=== PATIENT | female | born 1965 | race African-American/Black ===

== ENCOUNTER 2017-06-22 14:38 | Emergency (ER) | payer OTHER ==
[~2017-06-22 14:38] MED LIST: ALUM5LIQ PO; CALA180T PO; LISI-360 PO; MOBI15TA PO; NEUR300C PO; XANA1TAB6 PO; ZANT150T2 PO
[2017-06-22 14:53] VITALS: BP 181/98; PULSE 70; RESP 22; TEMP 98.5; O2SAT 99
[2017-06-22 15:43] LABS: BACTERIA, URINE MOD /hpf; BILIRUBIN, URINE NEG (NEG); BLOOD, URINE NEG (NEG); GLUCOSE,URINE NEG (NEG); KETONE, URINE 10 mg/dL (NEG); MUCUS URINE FEW /lpf (OCC); NITRITE,URINE NEG (NEG); SQUAMOUS EPITHELIAL CELL URINE 10 /hpf (0-5); URINE COLOR YELLOW (YELLW/STRAW); URINE LEUKOCYTE ESTERASE SMALL (NEG)
[2017-06-22 16:07] VITALS: BP 170/81; PULSE 68; RESP 18; TEMP 98.5; O2SAT 100
[2017-06-22] MEDS ORDERED: cefTRIAXone 250 MG VIAL IM ONE (16:30)
--- NOTE | 2017-06-22 16:35 | PD ---
HPI . Flank pain Chief Complaint: Medical Clearance Time Seen by Provider: 16:23 Travel History International Travel<30 days: No Contact w/Intl Traveler<30days: No Traveled to known affect area: No History of Present Illness HPI Patient presents complaining with right flank pain. Onset was about 4 or 5 days ago. She was seen at an outside hospital 4 days ago and diagnosed with urinary tract infection. She states that she was given a prescription for Keflex and Lortab. She states that she has been taking the antibiotic but continues to have the flank pain. She states that the Lortab did help but she is out of Lortab. She states that she did have a CT scan done at that time. She comes in complaining with pain which she rates 10/10. She states that she cannot be still. She denies any other associated symptoms. PFSH Past Medical History Arthritis: Yes (RHEUMATOID) Asthma: Yes Atrial Fibrillation: Yes Blood Disorders: No Anxiety: Yes Depression: Yes Heart Rhythm Problems: Yes (PALPITATIONS) Cancer: No Cardiovascular Problems: Yes (HTN) Chest Pain: No Congestive Heart Failure: No COPD: Yes Diabetes: Yes (METFORMIN) Diminished Hearing: No Endocrine: No Fibromyalgia: Yes Gastrointestinal Disorders: Yes GERD: Yes Genitourinary: No Hypertension: Yes Immune Disorder: Yes (rheumatoid arthritis and fibromyalgia) Implanted Vascular Access Dvce: No Musculoskeletal: Yes (DEGENERATIVE DISC DISEASE) Neurologic: Yes (FIBROMYALGIA) Psychiatric: Yes Reproductive: Yes ("CERVICAL INFECTION") Respiratory: Yes (ASTHMA BRONCHITIS) Immunizations Current: No Radiation Therapy: No Thyroid Disease: No : 3 Para: 3 Miscarriage: 0 : 0 Tubal Ligation: Yes (1988) Past Surgical History Section: Yes (x3) Cholecystectomy: Yes Social History Alcohol Use: No Tobacco Use: Yes (1/2 PPD) Substance Use: Yes (MARIJUANA AND COCAINE) Allergies-Medications (Allergen,Severity, Reaction): Coded Allergies: diclofenac (Unverified Allergy, Severe, N/V, 10/13/16) etodolac (Unverified Allergy, Severe, N/V, 10/13/16) flurbiprofen (Unverified Allergy, Severe, N/V, 10/13/16) ibuprofen (Unverified Allergy, Severe, N/V, 10/13/16) indomethacin (Unverified Allergy, Severe, N/V, 10/13/16) ketoprofen (Unverified Allergy, Severe, N/V, 10/13/16) ketorolac (Unverified Allergy, Severe, N/V, 10/13/16) naproxen (Unverified Allergy, Severe, N/V, 10/13/16) oxaprozin (Unverified Allergy, Severe, N/V, 10/13/16) tramadol (Unverified Allergy, Severe, N/V, 10/13/16) Reported Meds & Prescriptions Reported Meds & Active Scripts Active Maalox (Al Hydrox/Mg Hydrox/Simethicone) Susp 30 Ml PO Q6H PRN 3 Days Reported Mobic (Meloxicam) 15 Mg Tab 15 Mg PO BID Zantac (Ranitidine HCl) 150 Mg Tab 150 Mg PO DAILY Xanax 1 mg (Alprazolam) Alprazolam 1 mg Tab 1 Tab PO BID Lisinopril 10 mg (Lisinopril) 10 Mg Tab 1 Tab PO HS Neurontin (Gabapentin) 300 Mg Cap 500 Mg PO TID Verapamil Hcl Er (Verapamil HCl) 180 Mg Tab 180 Mg PO DAILY Review of Systems Except as stated in HPI: all other systems reviewed are Neg General / Constitutional: No: Fever, Chills Genitourinary: Positive: Flank Pain, No: Urgency, Frequency, Dysuria Musculoskeletal: Positive: Arthralgias Physical Exam Narrative GENERAL: The patient is sitting on the stretcher rocking back and forth continuously. SKIN: warm/dry. Normal color and turgor. HEAD: Normocephalic. Atraumatic. EYES: Pupils equal and round. No scleral icterus. No injection or drainage. ENT: No nasal bleeding or discharge. Mucous membranes pink and moist. NECK: Trachea midline. Full range of motion without pain. CARDIOVASCULAR: Regular rate and rhythm. RESPIRATORY: No accessory muscle use. GASTROINTESTINAL: Abdomen soft. Nontender. Bowel sounds present. Nondistended. : Right CVA tenderness. MUSCULOSKELETAL: No obvious deformities. NEUROLOGICAL: Awake and alert. No obvious cranial nerve deficits. Motor grossly within normal limits. Normal speech. PSYCHIATRIC: Appropriate mood and affect; insight and judgment normal. Data Data Last Documented VS Vital Signs Date Time Temp Pulse Resp B/P (MAP) Pulse Ox O2 Delivery O2 Flow Rate FiO2 06/22/17 16:07 98.5 68 18 170/81 (110) 100 Room Air Orders Orders Urinalysis - C+S If Indicated (06/22/17 15:00) Urine Culture (06/22/17 15:06) Ceftriaxone Inj (Rocephin Inj) (06/22/17 16:30) Ct Abd/Pel W/O Iv Contrast (06/22/17 16:35) Iv Access Insert/Monitor (06/22/17 16:35) Ondansetron Inj (Zofran Inj) (06/22/17 16:45) Sodium Chloride 0.9% Flush (Ns Flush) (06/22/17 16:45) Morphine Inj (Morphine Inj) (06/22/17 16:45) Ceftriaxone Inj (Rocephin Inj) (06/22/17 16:45) Labs Laboratory Tests Test 06/22/17 15:06 Urine Color YELLOW Urine Turbidity HAZY Urine pH 6.0 Urine Specific [place] 1.027 Urine Protein TRACE mg/dL Urine Glucose (UA) NEG mg/dL Urine Ketones 10 mg/dL Urine Occult Blood NEG Urine Nitrite NEG Urine Bilirubin NEG Urine Urobilinogen 2.0 MG/DL Urine Leukocyte Esterase SMALL Urine RBC 1 /hpf Urine WBC 7 /hpf Urine Squamous Epithelial Cells 10 /hpf Urine Bacteria MOD /hpf Urine Mucus FEW /lpf Microscopic Urinalysis Comment CULTURE INDICATED MDM Medical Decision Making Medical Screen Exam Complete: Yes Emergency Medical Condition: Yes Differential Diagnosis Differential diagnosis of flank pain includes but is not limited to kidney stone , pyelonephritis, musculoskeletal pain, PE Narrative Course This patient presents complaining with right flank pain. Onset was about 4 days ago. She was seen at an outside hospital and diagnosed with a UTI. She has been on antibiotics for 4 days. Her pain continues. She is out of her Lortab. UA shows small leukocyte esterase, 7 white blood cells and moderate bacteria. I will give her a dose of Rocephin. I have ordered a CT to look for a kidney stone. Diagnosis Primary Impression: Right flank pain Additional Impression: Urinary tract infection Qualified Codes: N39.0 - Urinary tract infection, site not specified Patient Instructions: Narcotic given in the ED Disposition: 01 DISCHARGE HOME Condition: Stable Lashonda Davila MD Jun 22, 2017 16:35
[2017-06-22] MEDS ORDERED: cefTRIAXone INJ 1,000 MG in SODIUM CHLORIDE 0.9% INJ 100 ML IV ONE (16:45)
[2017-06-22] MEDS ORDERED: ONDANSETRON HCL 4 MG/2 ML VIAL IVP ONE (16:45)
[2017-06-22] MEDS ORDERED: MORPHINE SULFATE 4 MG/ML INJ IV PUSH ONE (16:45)
[2017-06-22] MEDS ORDERED: SODIUM CHLORIDE 0.9% FLUSH 10 ML FLUSH IVF PRN (16:45)
[2017-06-22 17:50] VITALS: BP 141/87; PULSE 78; RESP 18; O2SAT 98
--- NOTE | 2017-06-22 18:42 | RADRPT ---
EXAM DATE/TIME: 06/22/2017 18:11 [place] COMPARISON: No previous studies available for comparison. INDICATIONS : Upper abdominal pain ORAL CONTRAST: No oral contrast ingested. RADIATION DOSE: 13.88 CTDIvol (mGy) ; Patient body habitus MEDICAL HISTORY : Hypertension. Cardiovascular disease Chronic obstructive pulmonary disease.Asthma, diabetes SURGICAL HISTORY : Tubal ligation. section. ENCOUNTER: Initial ACUITY: 1 day PAIN SCALE: 10/10 LOCATION: upper quadrant Abdomen TECHNIQUE: Volumetric scanning of the abdomen and pelvis was performed. Using automated exposure control and ad justment of the mA and/or kV according to patient size, radiation dose was kept as low as reasonably achievable to obtain optimal diagnostic quality images. DICOM format image data is available electro nically for review and comparison. FINDINGS: LOWER LUNGS: The visualized lower lungs are clear. LIVER: Homogeneous density without lesion. There is no dilation of the biliary tree. Previous cholecystecto my. SPLEEN: Normal size without lesion. PANCREAS: Within normal limits. KIDNEYS: Normal in size and shape. There is no mass, stone, or hydronephrosis. ADRENAL GLANDS: Within normal limits. VASCULAR: There is no aortic aneurysm. BOWEL/MESENTERY: The stomach, small bowel, and colon demonstrate no acute abnormality. There is no free intraperitone al air or fluid. ABDOMINAL WALL: 2.6 cm wide intra-abdominal wall defect at the level of the umbilicus containing fat only and not sig nificantly changed. RETROPERITONEUM: There is no lymphadenopathy. BLADDER: No wall thickening or mass. REPRODUCTIVE: Within normal limits. INGUINAL: There is no lymphadenopathy or hernia. MUSCULOSKELETAL: No acute bony abnormality demonstrated. CONCLUSION: No acute abnormality demonstrated. Mark Haile MD on June 22, 2017 at 18:37 Board Certified Radiologist. This report was verified electronically.
--- NOTE | 2017-06-22 19:11 | PD ---
Physical Exam Time Seen by Provider: 19:09 Narrative Received report from Dr. Davila at change of shift. CT pending and if CT is negative patient to be discharged home. Data Data Last Documented VS Vital Signs Date Time Temp Pulse Resp B/P (MAP) Pulse Ox O2 Delivery O2 Flow Rate FiO2 06/22/17 17:50 78 18 141/87 (105) 98 Room Air 06/22/17 16:07 98.5 Orders Orders Urinalysis - C+S If Indicated (06/22/17 15:00) Urine Culture (06/22/17 15:06) Ceftriaxone Inj (Rocephin Inj) (06/22/17 16:30) Ct Abd/Pel W/O Iv Contrast (06/22/17 16:35) Iv Access Insert/Monitor (06/22/17 16:35) Ondansetron Inj (Zofran Inj) (06/22/17 16:45) Sodium Chloride 0.9% Flush (Ns Flush) (06/22/17 16:45) Morphine Inj (Morphine Inj) (06/22/17 16:45) Ceftriaxone Inj (Rocephin Inj) (06/22/17 16:45) Ed Discharge Order (06/22/17 19:08) Labs Laboratory Tests Test 06/22/17 15:06 Urine Color YELLOW Urine Turbidity HAZY Urine pH 6.0 Urine Specific [place] 1.027 Urine Protein TRACE mg/dL Urine Glucose (UA) NEG mg/dL Urine Ketones 10 mg/dL Urine Occult Blood NEG Urine Nitrite NEG Urine Bilirubin NEG Urine Urobilinogen 2.0 MG/DL Urine Leukocyte Esterase SMALL Urine RBC 1 /hpf Urine WBC 7 /hpf Urine Squamous Epithelial Cells 10 /hpf Urine Bacteria MOD /hpf Urine Mucus FEW /lpf Microscopic Urinalysis Comment CULTURE INDICATED MDM Supervised Visit with RAUL: Yes Narrative Course Received report from Dr. Davila at change of shift. CT pending and if CT is negative patient to be discharged home. Abdomen/Pelvis CT 06/22/17 2605 Signed Impressions: Service Date/Time: Thursday, June 22, 2017 18:11 - CONCLUSION: No acute abnormality demonstrated. Mark Haile MD Discussed CT findings with the patient. Instructed patient to continue antibiotics for home. Instructed patient to follow up with primary care provider. Patient verbalizes understanding and agreement with treatment plan. Patient is medically cleared and stable for discharge. Discussed reasons to return to the emergency department. Patient agrees with treatment plan. The patients vital signs are stable and the patient is stable for outpatient follow- up and treatment. Patient discharged home, stable and in no acute distress. Diagnosis Primary Impression: Right flank pain Additional Impression: Urinary tract infection Qualified Codes: N39.0 - Urinary tract infection, site not specified Referrals: [facility] Primary Care Physician Urologist Patient Instructions: General Instructions, Narcotic given in the ED, Urinary Tract Infection in Women (ED) Additional Instruction: Take antibiotics as prescribed and complete full course Drink plenty of fluids Maintain good personal hygiene Follow-up with primary care provider Return to the emergency department immediately with worsening of symptoms Med/Other Pt SpecificInfo: No Change to Meds, No Meds Exist/No RX given Disposition: 01 DISCHARGE HOME Condition: Stable Radha Gaitan Jun 22, 2017 19:11
[2017-06-22 19:27] VITALS: BP 169/83; PULSE 62; RESP 18; O2SAT 99
== END 2017-06-22 19:27 | disposition home or self-care (01) ==
LOC: NEPD 14:38
DX: N39.0 Urinary tract infection, site not specified (principal); E11.9 Type 2 diabetes mellitus without complications; I10 Essential (primary) hypertension; F17.200 Nicotine dependence, unspecified, uncomplicated; F12.90 Cannabis use, unspecified, uncomplicated; F14.90 Cocaine use, unspecified, uncomplicated; Z79.84 Long term (current) use of oral hypoglycemic drugs
CPT/HCPCS: 74176; 81001; 87086; 96365; 96366; 96375; 99284; J0696; J2270; J2405

== ENCOUNTER 2017-07-16 23:54 | Emergency (ER) | payer OTHER ==
[~2017-07-16] VITALS: Ht 154.9 cm; Wt 150.0 kg
[2017-07-16 23:58] VITALS: BP 176/96; PULSE 74; RESP 18; O2SAT 96
[2017-07-17] MEDS ORDERED: SOMA350T PO (00:07)
[2017-07-17] MEDS ORDERED: LISI10TA3 PO (00:07)
[2017-07-17] MEDS ORDERED: PERC5TAB12 PO (00:07)
[2017-07-17] MEDS ORDERED: NEUR800T PO (00:07)
[2017-07-17] MEDS ORDERED: METF500T PO (00:07)
[2017-07-17] MEDS ORDERED: PROP10TA6 PO (00:07)
[2017-07-17 00:51] VITALS: TEMP 98.1
--- NOTE | 2017-07-17 00:57 | PD ---
HPI Chief Complaint: Abdominal Pain Time Seen by Provider: 00:04 Travel History International Travel<30 days: No Contact w/Intl Traveler<30days: No Traveled to known affect area: No History of Present Illness HPI abdominal pain vomit multiple times reports severe leg pain bilaterally at the inguinal area as well as a suprapubic pain she is moaning winding through her entire HPI she is vague about when the pain started . Poor historian of nature of pain or time frame ,,, she says palpating her abdomen makes it worse.. legs movement make it worse she denies diarrhea she denies constipation. PFSH Past Medical History Arthritis: Yes (RHEUMATOID) Asthma: Yes Atrial Fibrillation: Yes Blood Disorders: No Anxiety: Yes Depression: Yes Heart Rhythm Problems: Yes (PALPITATIONS) Cancer: No Cardiovascular Problems: Yes (HTN) Chest Pain: No Congestive Heart Failure: No COPD: Yes Diabetes: Yes Patient Takes Glucophage: Yes (07/16/17 0930) Diminished Hearing: No Endocrine: No Fibromyalgia: Yes Gastrointestinal Disorders: Yes GERD: Yes Genitourinary: No Hypertension: Yes Immune Disorder: Yes (rheumatoid arthritis and fibromyalgia) Implanted Vascular Access Dvce: No Musculoskeletal: Yes (DEGENERATIVE DISC DISEASE) Neurologic: Yes (FIBROMYALGIA) Psychiatric: Yes Reproductive: Yes ("CERVICAL INFECTION") Respiratory: Yes (ENDOMITROSIS) Immunizations Current: No Radiation Therapy: No Thyroid Disease: No Tetanus Vaccination: > 5 Years ?: Not : 3 Para: 3 Miscarriage: 0 : 0 Tubal Ligation: Yes (1988) Past Surgical History Section: Yes (x3) Cholecystectomy: Yes Social History Alcohol Use: No Tobacco Use: Yes (3 CIGS PER DAY) Substance Use: No (DENIES) Allergies-Medications (Allergen,Severity, Reaction): Coded Allergies: diclofenac (Unverified Allergy, Severe, N/V, 10/13/16) etodolac (Unverified Allergy, Severe, N/V, 10/13/16) flurbiprofen (Unverified Allergy, Severe, N/V, 10/13/16) ibuprofen (Unverified Allergy, Severe, N/V, 10/13/16) indomethacin (Unverified Allergy, Severe, N/V, 10/13/16) ketoprofen (Unverified Allergy, Severe, N/V, 10/13/16) ketorolac (Unverified Allergy, Severe, N/V, 10/13/16) morphine (Verified Allergy, Severe, 06/22/17) PT STATES "CAUSES ABD PAIN AND KNEE PAIN". naproxen (Unverified Allergy, Severe, N/V, 10/13/16) oxaprozin (Unverified Allergy, Severe, N/V, 10/13/16) tramadol (Unverified Allergy, Severe, N/V, 10/13/16) Reported Meds & Prescriptions Reported Meds & Active Scripts Active Reported Lisinopril 10 Mg Tab 10 Mg PO DAILY Neurontin (Gabapentin) 800 Mg Tab 800 Mg PO TID Propranolol (Propranolol HCl) 10 Mg Tab 10 Mg PO Q12HR Soma (Carisoprodol) 350 Mg Tab 350 Mg PO BID PRN Percocet (Oxycodone-Acetaminophen) 5-325 mg Tab 1-2 Tab PO Q4H PRN Metformin (Metformin HCl) 500 Mg Tab 500 Mg PO DAILY With a meal Review of Systems Except as stated in HPI: all other systems reviewed are Neg Gastrointestinal: Positive: Abdominal Pain Physical Exam Narrative GENERAL: Patient is very overdramatic while she is describing her pain to me rocking whining leaning forward SKIN: Warm and dry. HEAD: Atraumatic. Normocephalic. EYES: Pupils equal and round. No scleral icterus. No injection or drainage. ENT: No nasal bleeding or discharge. Mucous membranes pink and moist. NECK: Trachea midline. No JVD. CARDIOVASCULAR: Regular rate and rhythm. RESPIRATORY: No accessory muscle use. Clear to auscultation. Breath sounds equal bilaterally. GASTROINTESTINAL: Abdomen pain diffuse MUSCULOSKELETAL: Extremities without clubbing, cyanosis, or edema. No obvious deformities. NEUROLOGICAL: Awake and alert. No obvious cranial nerve deficits. Motor grossly within normal limits. Five out of 5 muscle strength in the arms and legs. Normal speech. PSYCHIATRIC: Appropriate mood and affect; insight and judgment normal. Data Data Last Documented VS Orders Orders Urinalysis - C+S If Indicated (07/17/17 00:57) Al-Mag Hy-Si 40-40-4 Mg/Ml Liq (Mag-Al P (07/17/17 01:00) Lidocaine 2% Viscous (Xylocaine 2% Visco (07/17/17 01:00) Gabapentin (Neurontin) (07/17/17 01:45) Tramadol (Ultram) (07/17/17 01:45) Morphine Inj (Morphine Inj) (07/17/17 01:45) Complete Blood Count With Diff (07/17/17 02:43) Comprehensive Metabolic Panel (07/17/17 02:43) Creatine Kinase (Cpk) (07/17/17 02:43) Lipase (07/17/17 02:43) Hydromorphone Pf Inj (Dilaudid Pf Inj) (07/17/17 02:45) Hydromorphone Pf Inj (Dilaudid Pf Inj) (07/17/17 03:00) Ed Discharge Order (07/17/17 05:07) Labs Laboratory Tests Test 07/17/17 00:47 07/17/17 02:40 07/17/17 03:30 Urine Color YELLOW Urine Turbidity CLEAR Urine pH 5.0 Urine Specific [place] 1.008 Urine Protein NEG mg/dL Urine Glucose (UA) NEG mg/dL Urine Ketones NEG mg/dL Urine Occult Blood NEG Urine Nitrite NEG Urine Bilirubin NEG Urine Urobilinogen LESS THAN 2.0 MG/DL Urine Leukocyte Esterase SMALL Urine RBC 1 /hpf Urine WBC 2 /hpf Urine Squamous Epithelial Cells 4 /hpf Urine Bacteria RARE /hpf Urine Hyaline Casts 12 /lpf Microscopic Urinalysis Comment CULT NOT INDICATED Blood Urea Nitrogen 13 MG/DL Creatinine 1.05 MG/DL Random Glucose 76 MG/DL Total Protein 7.3 GM/DL Albumin 3.4 GM/DL Calcium Level 8.5 MG/DL Alkaline Phosphatase 80 U/L Aspartate Amino Transf (AST/SGOT) 18 U/L Alanine Aminotransferase (ALT/SGPT) 16 U/L Total Bilirubin 0.4 MG/DL Sodium Level 140 MEQ/L Potassium Level 4.5 MEQ/L Chloride Level 104 MEQ/L Carbon Dioxide Level 27.3 MEQ/L Anion Gap 9 MEQ/L Estimat Glomerular Filtration Rate 67 ML/MIN Total Creatine Kinase 89 U/L Lipase 158 U/L White Blood Count 8.8 TH/MM3 Red Blood Count 4.65 MIL/MM3 Hemoglobin 12.6 GM/DL Hematocrit 37.8 % Mean Corpuscular Volume 81.3 FL Mean Corpuscular Hemoglobin 27.1 PG Mean Corpuscular Hemoglobin Concent 33.4 % Red Cell Distribution Width 16.3 % Platelet Count 250 TH/MM3 Mean Platelet Volume 8.5 FL Neutrophils (%) (Auto) 62.3 % Lymphocytes (%) (Auto) 26.6 % Monocytes (%) (Auto) 7.7 % Eosinophils (%) (Auto) 2.6 % Basophils (%) (Auto) 0.8 % Neutrophils # (Auto) 5.5 TH/MM3 Lymphocytes # (Auto) 2.3 TH/MM3 Monocytes # (Auto) 0.7 TH/MM3 Eosinophils # (Auto) 0.2 TH/MM3 Basophils # (Auto) 0.1 TH/MM3 CBC Comment AUTO DIFF Differential Comment AUTO DIFF CONFIRMED MDM Medical Decision Making Medical Screen Exam Complete: Yes Emergency Medical Condition: Yes Medical Record Reviewed: Yes Differential Diagnosis UTI pelvic pain back pain renal colic other Diagnosis Primary Impression: Abdominal pain Qualified Codes: R10.9 - Unspecified abdominal pain Patient Instructions: General Instructions Disposition: 01 DISCHARGE HOME Condition: Good Evelio De Leon MD July 17, 2017 00:57
[2017-07-17] MEDS ORDERED: ALUMINUM/MAGNESIUM/SIMETH 30 ML CUP PO ONE (01:00)
[2017-07-17] MEDS ORDERED: LIDOCAINE VISCOUS 2% SOLN 15 ML UDC PO ONE (01:00)
[2017-07-17 01:25] LABS: BACTERIA, URINE RARE /hpf; BILIRUBIN, URINE NEG (NEG); BLOOD, URINE NEG (NEG); GLUCOSE,URINE NEG (NEG); HYALINE CAST, URINE 12 /lpf (RARE); KETONE, URINE NEG (NEG); NITRITE,URINE NEG (NEG); SQUAMOUS EPITHELIAL CELL URINE 4 /hpf (0-5); URINE COLOR YELLOW (YELLW/STRAW); URINE LEUKOCYTE ESTERASE SMALL (NEG)
[2017-07-17] MEDS ORDERED: traMADol HCL 50 MG TAB PO ONE (01:45)
[2017-07-17] MEDS: GABAPENTIN 300 MG CAP PO ONE ×2 (01:45→06:02)
[2017-07-17] MEDS ORDERED: MORPHINE SULFATE 4 MG/ML INJ IV PUSH ONE (01:45)
[2017-07-17] MEDS ORDERED: HYDROmorphone HCL PF 1 MG/ML VIAL IV PUSH ONE (02:45)
[2017-07-17] MEDS ORDERED: HYDROmorphone HCL PF 2 MG/ML VIAL IV PUSH ONE (03:00)
[2017-07-17 03:09] LABS: ALKALINE PHOSPHATASE 80 U/L (45-117); TOTAL BILIRUBIN ADULT 0.4 MG/DL (0.2-1.0); TOTAL PROTEIN 7.3 GM/DL (6.4-8.2)
[2017-07-17 03:14] LABS: ALBUMIN 3.4 GM/DL (3.4-5.0); ALT (GPT) 16 U/L (10-53); AST (GOT) 18 U/L (15-37); BICARBONATE 27.3 MEQ/L (21.0-32.0); BLOOD UREA NITROGEN 13 MG/DL (7-18); CALCIUM 8.5 MG/DL (8.5-10.1); CHLORIDE 104 MEQ/L (98-107); CREATININE 1.05 MG/DL (0.50-1.00); GLOMERULAR FILTRATION RATE 67 ML/MIN (>89); GLUCOSE,RANDOM 76 MG/DL (74-106); SODIUM (NA) 140 MEQ/L (136-145)
[2017-07-17 03:55] LABS: AUTOMATED NEUTROPHIL # 5.5 TH/MM3 (1.8-7.7); BASOPHIL # 0.1 TH/MM3 (0-0.2); BASOPHIL % 0.8 % (0.0-2.0); EOSINOPHIL # 0.2 TH/MM3 (0-0.4); EOSINOPHIL % 2.6 % (0.0-4.0); HEMATOCRIT 37.8 % (35.0-46.0); HEMOGLOBIN 12.6 GM/DL (11.6-15.3); LYMPH % 26.6 % (9.0-44.0); LYMPHOCYTE # 2.3 TH/MM3 (1.0-4.8); MEAN CELL VOLUME 81.3 FL (80.0-100.0); MEAN CORPUSCULAR HEMOGLOBIN 27.1 PG (27.0-34.0); MEAN CORPUSCULAR HGB CONC 33.4 % (32.0-36.0); MEAN PLATELET VOLUME 8.5 FL (7.0-11.0); MONO % 7.7 % (0.0-8.0); MONOCYTE # 0.7 TH/MM3 (0-0.9); NEUT % 62.3 % (16.0-70.0); PLATELET COUNT 250 TH/MM3 (150-450); RED BLOOD COUNT 4.65 MIL/MM3 (4.00-5.30); RED CELL DISTRIBUTION WIDTH 16.3 % (11.6-17.2); WHITE BLOOD COUNT 8.8 TH/MM3 (4.0-11.0)
[2017-07-17 04:26] VITALS: BP 132/77; PULSE 59; RESP 16; O2SAT 96
[2017-07-17 05:19] VITALS: RESP 17
== END 2017-07-17 06:19 | disposition home or self-care (01) ==
LOC: NEPE 23:54
DX: R10.9 Unspecified abdominal pain (principal); F17.210 Nicotine dependence, cigarettes, uncomplicated; I10 Essential (primary) hypertension
CPT/HCPCS: 80053; 81001; 82550; 83690; 85025; 96374; 99284; J1170